=== PATIENT | male | born 1990 | race Caucasian/White ===

== ENCOUNTER 2016-10-25 22:00 | Emergency (ER) | payer OTHER ==
[~2016-10-25] VITALS: Ht 210.8 cm; Wt 95.3 kg
[~2016-10-25 22:00] MED LIST: AUGMENTIN 875875 MG PO; COLACE100 MG PO; HYDROCODONE-AP1 EAC6 PO
[2016-10-25 22:01] VITALS: BP 121/79
[2016-10-25] MEDS ORDERED: IBUPROFEN 800800 M1 PO (22:43)
[2016-10-25] MEDS ORDERED: HYDROCODONE-AP1 EAC6 PO (22:43)
== END 2016-10-25 22:52 | disposition home or self-care (01) ==
LOC: ER 22:00
DX: S43.101A Unspecified dislocation of right acromioclavicular joint, initial encounter (principal); Z90.89 Acquired absence of other organs; Z88.8 Allergy status to other drugs, medicaments and biological substances; X58.XXXA Exposure to other specified factors, initial encounter; Y93.65 Activity, lacrosse and field hockey; Y92.89 Other specified places as the place of occurrence of the external cause; Y99.9 Unspecified external cause status